=== PATIENT | female | born 1985 | race Caucasian/White ===

== ENCOUNTER → 2017-09-24 | Outpatient (CLI) | payer OTHER | LOC: LAB.O 09:50 | PROVIDERS: ATTEND Obstetrics & Gynecology | DX: Z01.419 Encounter for gynecological examination (general) (routine) without abnormal findings (principal) ==

== ENCOUNTER 2017-12-11 22:21 | Emergency (ER) | payer OTHER ==
--- NOTE | 2017-12-11 23:36 | ED.PDOC ---
History of Present Illness - General Chief Complaint: Back Pain or Injury Stated Complaint: low back pain, buldging disk L4-5 S1 Time Seen by Provider: 12/11/17 23:32 Source: patient Exam Limitations: no limitations - History of Present Illness Initial Comments: Ria Marie 32 y/o female stated that she had onset of sharp /stabbing low back pain tonight radiating to lower abdominal area stated been carrying babies but no recent back injuries.Had previous history of back pains in the past .Denies bowel or bladder dysfunction.Had history of bulging disc and had MRI / spine 11 years ago.No surgical procedure done. Timing/Duration: 1-3 hours Quality/Severity: sharpness Back Pain Location: lumbar spine Back Pain Radiation: other - see hpi Method of Injury/Prior Injury: other - no ijuries Improving Factors: rest Worsening Factors: movement Associated Symptoms: other - see hpi Allergies/Adverse Reactions: Allergies NO KNOWN ALLERGY Allergy (Unverified 07/02/13 10:11) Home Medications: Ambulatory Orders Vit W/ Ferrous Fumara [] 1 tab PO AM 07/05/13 Gabapentin [Neurontin] 300 mg PO BID #30 cap 12/12/17 Tramadol HCl 50 mg PO Q6HRS PRN #30 tab 12/12/17 predniSONE 20 mg PO DAILY #10 tab 12/12/17 Review of Systems - Review of Systems Constitutional: States: no symptoms reported EENTM: States: no symptoms reported Respiratory: States: no symptoms reported Gastrointestinal/Abdominal: States: no symptoms reported Genitourinary: States: no symptoms reported Musculoskeletal: States: see HPI Neurological: States: no symptoms reported All other Systems: Reviewed and Negative, No Change from Baseline Past Medical History (General) - Patient Medical History Hx Congestive Heart Failure: No Hx Diabetes: No Surgical History: other - d and c - Female History Patient is a Female of Child Bearing Age (10 -59 yrs old): Yes Hx Last Menstrual Period: 11/29/17 Patient : No Family Medical History - Family History Mother Family History: Unknown Physical Exam - Physical Exam General Appearance: Alert, Anxious, Comfortable, No apparent distress Eyes, Ears, Nose, Throat Exam: normal ENT inspection Neck Exam: non-tender, normal alignment, normal inspection Cardiovascular/Respiratory: regular rate, rhythm, no M/R/G, normal peripheral pulses Peripheral Pulses: radial,right: 2+, radial,left: 2+ Gastrointestinal/Abdominal: normal bowel sounds, non tender, soft, no organomegaly Back Exam: decreased range of motion - l/s area, vertebral tenderness - along l/ s junction Neurologic: alert, oriented x 3, other - DTR 2 + bilaterally knee jerk; straight leg raising test negative Skin Exam: normal color Progress - EKG/XRAY/CT XRAY: l- spine no fracture or subluxation Departure - Departure Clinical Impression: Low back pain potentially associated with radiculopathy Time of Disposition: :06 Disposition: Discharge to Home or Self Care Departure Forms: ED Discharge - Pt. Copy, Patient Portal Self Enrollment Instructions: DI for Low Back Pain, DI for Herniated Disc, Herniated Disc Referrals: Everton Maya MD [Primary Care Provider] - 1-2 Weeks Prescriptions: Tramadol HCl 50 mg PO Q6HRS PRN #30 tab PRN Reason: Pain Gabapentin [Neurontin] 300 mg PO BID #30 cap predniSONE 20 mg PO DAILY #10 tab Home Medications: Ambulatory Orders Vit W/ Ferrous Fumara [] 1 tab PO AM 07/05/13 Gabapentin [Neurontin] 300 mg PO BID #30 cap 12/12/17 Tramadol HCl 50 mg PO Q6HRS PRN #30 tab 12/12/17 predniSONE 20 mg PO DAILY #10 tab 12/12/17 Additional Instructions: Follow up with your primary Md Dr. Maya 12 Dec 2017
[2017-12-12] MEDS ORDERED: MORPHINE SULFATE INJ 10 MG/ML VIAL IM ONE (00:01)
[2017-12-12] MEDS ORDERED: DEXAMETHASONE INJ 10 MG/ML VIAL IM ONE (00:01)
[2017-12-12] MEDS ORDERED: ORPHENADRINE CITRATE 30 MG/ML AMP IM ONE (00:01)
--- NOTE | 2017-12-12 00:55 | RAD ---
EXAM: Three view(s) of the lumbar spine. INDICATION: Pain, lumbar spine. COMPARISON: None. FINDINGS: Alignment: Intact. Fracture: No acute compression fracture or subluxation. IMPRESSION: 1. No acute compression fracture. Electronically signed by: Christoph Campbell MD 12/12/2017 12:54 AM CDT Workstation: [id number]
[2017-12-12] MEDS ORDERED: HYDROCOD/APAP 10/325 (ER DISP) # 3 tablets PO ONE (01:04)
[2017-12-12] MEDS ORDERED: GABAPENTIN 300 MG CAP PO ONE (01:04)
[2017-12-12 01:37] VITALS: TEMP 98; O2SAT 97
[2017-12-12 01:45] VITALS: BP 128/72
== END 2017-12-12 01:47 | disposition home or self-care (01) ==
LOC: ER 22:21
DX: M54.16 Radiculopathy, lumbar region (principal)
CPT/HCPCS: 72100; 80307; 81001; 81025; J1100; J2270; J2360

== ENCOUNTER → 2020-01-09 | Outpatient (CLI) | payer OTHER | LOC: LAB.O 10:23 | PROVIDERS: ATTEND Internal Medicine Gastroenterology | DX: R10.10 Upper abdominal pain, unspecified (principal) ==

== ENCOUNTER 2020-01-18 17:30 | Emergency (ER) | payer OTHER ==
[2020-01-18] MEDS ORDERED: SODIUM CHLORIDE 0.9% (FLUSH) 10 ML SYG IV PRN (17:33)
--- NOTE | 2020-01-18 17:34 | ED.PDOC ---
History of Present Illness - General Time Seen by Provider: 01/18/20 17:32 Source: patient - History of Present Illness Initial Comments: 34 yo female with PMH of constipation, endometriosis who presents with cc of abdominal pain. Reports onset of pain yesterday, at that time located throughout the lower abdominal region, now having pain in the epigastric region since this morning, gradually worsening, now reports as 7/10, constant pain, "feels like a cecy pushing through from my stomach to my back", no known exacerbating factors. Reports fever of 101.7F yesterday. Reports ongoing worsening cough for the past 2 weeks productive now for mucous. Reports also some intermittent mild right-sided chest discomfort with coughing. Also reports some urinary frequency and constipation. States that her last BM was today- small hardened droplets of stool but normal in color without any blood or melena. Reports poor appetite but denies any nausea or vomiting. Last menstrual period was about 4 weeks ago, due to start her period any day now. Reports history of endometriosis and underwent laparoscopic resection of some intra-abdominal tissue about [address] Maya and reports improved symptoms since then. No other abdominal surgeries reported. Denies any dyspnea, sore throat, vaginal discharge. Allergies/Adverse Reactions: Allergies NO KNOWN ALLERGY Allergy (Verified 01/18/20 18:03) Home Medications: Ambulatory Orders Vit W/ Ferrous Fumara [] 1 tab PO AM 07/05/13 Gabapentin [Neurontin] 300 mg PO BID #30 cap 12/12/17 Tramadol HCl 50 mg PO Q6HRS PRN #30 tab 12/12/17 predniSONE 20 mg PO DAILY #10 tab 12/12/17 Amoxicillin 1,000 mg PO TID 5 Days #30 cap 01/18/20 Review of Systems - Review of Systems Review of Systems: 01/18/20 18:25 as per HPI All other Systems: Reviewed and Negative Past Medical History (General) - Patient Medical History Hx Seizures: No Hx Stroke: No Hx Dementia: No Hx Asthma: No Hx of COPD: No Hx Cardiac Disorders: No Hx Congestive Heart Failure: No Hx Pacemaker: No Hx Hypertension: No Hx Thyroid Disease: No Hx Diabetes: No Hx Gastroesophageal Reflux: No Hx Renal Disease: No Hx Cancer: No Hx of HIV: No Hx Hepatitis C: No Hx MRSA: No - Vaccination History Hx Tetanus, Diphtheria Vaccination: No Hx Influenza Vaccination: No - Female History Hx Last Menstrual Period: 11/29/17 Patient : No Family Medical History - Family History Mother Family History: Unknown Physical Exam - Physical Exam General Appearance: Alert, Comfortable, No apparent distress Eye Exam: bilateral normal Ears, Nose, Throat: hearing grossly normal, normal ENT inspection, normal pharynx Neck: non-tender, full range of motion, supple, normal inspection Respiratory: chest non-tender, lungs clear, normal breath sounds, no respiratory distress, no accessory muscle use Cardiovascular/Chest: normal peripheral pulses, regular rate, rhythm, no edema, no gallop, no JVD, no murmur Peripheral Pulses: radial,right: 2+, radial,left: 2+ Gastrointestinal/Abdominal: soft, no organomegaly, no pulsatile mass, tenderness - Moderate without guarding to epigastric region and LLQ Back Exam: normal inspection, no CVA tenderness, no vertebral tenderness Extremity: normal range of motion, non-tender, normal inspection, no pedal edema, no calf tenderness 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 Her lab results revealed WBC 13,000 with slight left shift and no bandemia. Labs otherwise pretty unremarkable including CMP and amylase/lipase. hCG is negative. UA is pretty unremarkable. -CT A/P obtained which reveals no acute intra-abdominal processes. However, patient is incidentally noted to have focal consolidation in the right medial lower lung concerning for possible pneumonia. Will obtain 2 view x-ray of the chest. Will give Toradol 30 mg IV for pain. Anticipate discharge to home on antibiotics with close outpatient follow-up. 01/18/20 19:38 -CXR reveals small right consolidating infiltrate in the Right medial lower lobe per my read. No other acute processes noted. -pt remains stable, pain improved with Toradol -As pt previously healthy and low-risk for Abx resistance, will treat with high- dose amoxicillin therapy - 1000 mg PO TID x5 days. -dc to home in good condition, ED return warnings discussed at length Azam Ratliff MD Billing # 01/18/20 17:33 Sodium Chloride 0.9% (Flush) [Saline Flush Syringe] 10 ml IV PRN PRN 01/18/20 17:45 EKG STAT 01/18/20 18:21 Hold Metformin x 48Hrs [id number] Laboratory Results - last 24 hr 01/18/20 01/18/20 01/18/20 17:33 17:46 17:46 WBC 13.6 H RBC 4.17 L Hgb 12.1 Hct 36.0 MCV 86.3 MCH 29.1 MCHC 33.7 RDW 13.6 Plt Count 292 MPV 7.9 Absolute Neuts (auto) 10.60 H Absolute Lymphs (auto) 2.30 Absolute Monos (auto) 0.60 Absolute Eos (auto) 0.00 Absolute Basos (auto) 0.10 Neutrophils % 78.0 Lymphocytes % 16.9 L Monocytes % 4.4 Eosinophils % 0.2 L Basophils % 0.5 Sodium 137 Potassium 3.5 L Chloride 105 Carbon Dioxide 23 Anion Gap 12.5 BUN 9 Creatinine 0.73 BUN/Creatinine Ratio 12.3 Random Glucose 78 Serum Osmolality 271.4 L Calcium 9.2 Total Bilirubin 0.8 Direct Bilirubin 0.2 Indirect Bilirubin 0.6 AST 14 ALT 16 Alkaline Phosphatase 58 Serum Total Protein 7.8 Albumin 3.6 Amylase 47 Lipase 22 Urine Color Urine Appearance Urine pH Ur Specific [place] Urine Protein Urine Glucose (UA) Urine Ketones Urine Blood Urine Nitrite Urine Bilirubin Urine Urobilinogen Ur Leukocyte Esterase Urine RBC Urine WBC Ur Epithelial Cells Urine Bacteria Urine Mucus Urine HCG, Qual Negative 01/18/20 18:35 WBC RBC Hgb Hct MCV MCH MCHC RDW Plt Count MPV Absolute Neuts (auto) Absolute Lymphs (auto) Absolute Monos (auto) Absolute Eos (auto) Absolute Basos (auto) Neutrophils % Lymphocytes % Monocytes % Eosinophils % Basophils % Sodium Potassium Chloride Carbon Dioxide Anion Gap BUN Creatinine BUN/Creatinine Ratio Random Glucose Serum Osmolality Calcium Total Bilirubin Direct Bilirubin Indirect Bilirubin AST ALT Alkaline Phosphatase Serum Total Protein Albumin Amylase Lipase Urine Color Dk yellow H Urine Appearance Clear Urine pH 6.0 Ur Specific [place] >= 1.030 Urine Protein 30 Urine Glucose (UA) Negative Urine Ketones 80 H Urine Blood Trace-intact H Urine Nitrite Negative Urine Bilirubin Moderate Urine Urobilinogen 1.0 Ur Leukocyte Esterase Negative Urine RBC 0-1 Urine WBC 0-1 Ur Epithelial Cells 1-3 Urine Bacteria Rare Urine Mucus Moderate Urine HCG, Qual - EKG/XRAY/CT EKG: Sinus - NSR, HR 80, no ST elevations or Q waves noted, axis normal, intervals normal, no prior EKG for comparison. Departure - Departure Clinical Impression: Community acquired pneumonia Qualifiers: Laterality: right Lung location: lower lobe of lung Qualified Code(s): J18.9 - Pneumonia, unspecified organism Time of Disposition: 19:28 Disposition: Discharge to Home or Self Care Condition: Fair Instructions: Community-Acquired Pneumonia, Adult (DC) Diet: resume usual diet Activity: increase activity as tolerated Referrals: Everton Maya MD [Primary Care Provider] - 1-2 Weeks Prescriptions: Amoxicillin 1,000 mg PO TID 5 Days #30 cap Home Medications: Ambulatory Orders Vit W/ Ferrous Fumara [] 1 tab PO AM 07/05/13 Gabapentin [Neurontin] 300 mg PO BID #30 cap 12/12/17 Tramadol HCl 50 mg PO Q6HRS PRN #30 tab 12/12/17 predniSONE 20 mg PO DAILY #10 tab 12/12/17 Amoxicillin 1,000 mg PO TID 5 Days #30 cap 01/18/20 Additional Instructions: Take the antibiotics as directed and finish the full course even if well. Remain well-hydrated and advance your diet and activity level gradually as tolerated. Continue taking OTC medications for pain and fever such as Tylenol 650 mg every 6 hours as needed and ibuprofen 600 mg every 6 hours as needed. Return to the ED if you develop any concerning symptoms such as worsening chest pain or shortness of breath, worsening abdominal pain, intractable nausea and vomiting, blood in the vomit or stool, failure to improve after 24 to 48 hours of antibiotic therapy, etc. Follow-up with your primary care physician in the clinic is recommended in the next 3 to 5 days for repeat evaluation or sooner as needed.
[2020-01-18] MEDS ORDERED: ALUM & MAG HYDROX-SIMETHICONE 30 ML, LIDOCAINE VISCOUS 2% 15 ML PO ONE ×2 (18:00)
[2020-01-18] MEDS ORDERED: ONDANSETRON INJ 4 MG/2 ML VIAL IV ONE (18:00)
[2020-01-18] MEDS ORDERED: SODIUM CHLORIDE 0.9% 1000ML 1,000 ML IVS ONE (18:00)
[2020-01-18 18:02] VITALS: TEMP 99.2; O2SAT 98
--- NOTE | 2020-01-18 19:16 | CT ---
EXAM: CT Abdomen and Pelvis With Intravenous Contrast CLINICAL HISTORY: The patient is 34 years old and is Female; epigastric and lower abdominal pain TECHNIQUE: Axial computed tomography images of the abdomen and pelvis with intravenous contrast. Sagittal and coronal reformatted images were created and reviewed. This CT exam was performed using one or more of the following dose reduction techniques: automated exposure control, adjustment of the mA and/or kV according to patient size, and/or use of iterative reconstruction technique. COMPARISON: No relevant prior studies available. FINDINGS: Lung bases: Focal consolidation in the medial inferior right lower lobe. ABDOMEN: Liver: Unremarkable. No mass. Gallbladder and bile ducts: Unremarkable. No calcified stones. No ductal dilation. Pancreas: No findings to suggest acute pancreatitis. No mass visualized. No ductal dilation. Spleen: Unremarkable. No splenomegaly. Adrenals: Unremarkable. No mass. Kidneys and ureters: Punctate left nephrolithiasis. Kidneys are otherwise unremarkable. No hydronephrosis or ureter stone. Stomach and bowel: No bowel dilatation or obstruction. No bowel wall thickening. Stomach is unremarkable. PELVIS: Appendix: The visualized appendix is normal. No pericecal inflammation to suggest acute appendicitis. Bladder: Unremarkable. No mass. Reproductive: Unremarkable as visualized. ABDOMEN and PELVIS: Intraperitoneal space: Unremarkable. No free air. No significant fluid collection. Bones/joints: Degenerative changes right SI joint No acute fracture. No dislocation. Soft tissues: Unremarkable. Vasculature: Unremarkable. No abdominal aortic aneurysm. Lymph nodes: No pathologically enlarged lymph nodes. IMPRESSION: 1. Focal consolidation in the medial inferior right lower lobe.. Correlate clinically for pneumonia. 2. Punctate left nephrolithiasis. 3. Normal appendix. Electronically signed by: Julissa Landis MD 01/18/2020 7:14 PM CDT
[2020-01-18] MEDS ORDERED: KETOROLAC TROMETHAMINE INJ 30 MG/ML VIAL IV ONE (19:22)
[2020-01-18] MEDS ORDERED: AMOXICILLIN 500 MG CAP PO ONE (19:38)
--- NOTE | 2020-01-18 19:40 | RAD ---
EXAM DESCRIPTION: Chest,2 Views CLINICAL HISTORY: 34 years Female, fevers, leukocytosis, epigastric pain COMPARISON: CT abdomen pelvis performed earlier today. TECHNIQUE: PA and lateral chest radiographs. FINDINGS: Subtle nonspecific medial right lower lobe opacity, which is depicted in better detail on concurrently performed CT. No pneumothorax or pleural effusion. Normal cardiomediastinal contour. Normal osseous structures. IMPRESSION: 1. Medial right lower lobe opacity, nonspecific, but presumably infection. If indicated, consider additional characterization with CT chest. Electronically signed by: Steve Avalos MD 01/18/2020 7:38 PM CDT
[2020-01-18] MEDS ORDERED: AMOXICILLIN 500 MG CAP ONE (19:51)
[2020-01-18 19:56] VITALS: BP 132/83
== END 2020-01-18 19:56 | disposition home or self-care (01) ==
LOC: ER 17:30
DX: J18.9 Pneumonia, unspecified organism (principal); R07.89 Other chest pain; R50.9 Fever, unspecified
CPT/HCPCS: 71046; 74177; 80048; 80076; 81001; 81025; 82150; 83690; 85025; 93005; A4216; J1885; J2405; J7030

== ENCOUNTER → 2020-01-24 | Outpatient (CLI) | payer OTHER ==
--- NOTE | 2020-01-24 15:48 | US ---
EXAM DESCRIPTION: Abdomen,Complete: Ultrasound. CLINICAL HISTORY: 34 years FemaleUNSP ABD PN COMPARISON: None Available. TECHNIQUE: Transabdominal scanning: grayscale and Doppler modes. FINDINGS: Gallbladder: Slightly contracted. 5.9 mm echogenic object on the hepatic wall non gravity dependent with no shadowing. Most likely a polyp. Wall thickness 2.5 mm normal caliber with no fluid. Nontender with transducer pressure. Common bile duct: 3.7 mm normal caliber. Liver: Heterogeneous increased echogenicity. Long axis right lobe 13.8 cm. Normal caliber intrahepatic ducts. Neurologic flow portal vein and normal caliber at the inna hepatis. Smooth capsule with no ascites. Pancreas: Normal size and echogenicity; duct not seen.. Abdominal aorta: Normal caliber from the proximal segment to the distal bifurcation. IVC: visualized; normal caliber. Spleen normal echogenicity; long axis measurement is 11.1 cm. cm. Right kidney: 9.8 cm long axis with normal cortical thickness and echogenicity. Volume is 79.1 mL. No echogenic stones or hydronephrosis. Left kidney: 9.7 cm long axis. Volume is 148.7 mL. Normal cortical thickness and echogenicity. No echogenic stones and no hydronephrosis. IMPRESSION: 1. Gallbladder slightly contracted with almost 6 mm polyp. No stones or sludge. No wall thickening or fluid. Nontender. Normal caliber common bile duct. 2. Steatosis of the liver but no enlargement. Physiologic vascular flow. Otherwise negative. Pancreas is unremarkable. Normal caliber of the abdominal aorta and IVC. 3. Bilateral kidneys are negative. Left kidney is larger. Electronically signed by: Gumaro Patel MD 01/24/2020 3:47 PM CDT
== END ==
LOC: US 08:04
PROVIDERS: ATTEND Internal Medicine Gastroenterology
DX: K82.4 Cholesterolosis of gallbladder (principal); K76.0 Fatty (change of) liver, not elsewhere classified

== ENCOUNTER → 2020-02-01 | Outpatient (CLI) | payer OTHER ==
--- NOTE | 2020-02-01 10:33 | RAD ---
EXAMINATION: Chest x-ray 2 views. INDICATION: Pneumonia. COMPARISON: January 18, 2020 TECHNIQUE: Frontal and lateral radiographs of the chest. FINDINGS: The cardiac silhouette is normal in size. No focal consolidative process. There is no pneumothorax. Bones are grossly intact. IMPRESSION: No acute pulmonary findings. No change in aeration from prior study. Electronically signed by: Terrance Coulter MD 02/01/2020 10:32 AM CDT
== END ==
LOC: RAD 10:06
PROVIDERS: ATTEND Nurse Practitioner Family
DX: J18.9 Pneumonia, unspecified organism (principal)

== ENCOUNTER 2020-02-06 05:31 | Day surgery (SDC) | payer OTHER ==
[2020-02-06] MEDS ORDERED: LACTATED RINGERS 1,000 ML ONE (06:36)
[2020-02-06] MEDS ORDERED: LIDOCAINE 1% 10 ML VIAL INJ ONE (07:00)
[2020-02-06] MEDS ORDERED: PROPOFOL 200 MG/20 ML VIAL IV ONE (07:00)
--- NOTE | 2020-02-06 09:37 | OP ---
DATE OF PROCEDURE: 02/06/20 PREOPERATIVE DIAGNOSIS: 1. Upper abdominal pain. POSTOPERATIVE DIAGNOSIS: 1. Gastric erythema. 2. Otherwise unremarkable upper endoscopy. PROCEDURE: 1. Esophagogastroduodenoscopy. SURGEON: Iggy Sung MD ANESTHESIA: Monitored anesthesia care. ESTIMATED BLOOD LOSS: Less than 5 mL. COMPLICATIONS: None. PROCEDURE: The patient was placed in the left lateral decubitus position. A time-out was performed. After deep sedation was achieved, the Olympus adult upper endoscope was inserted through the oropharynx and into the proximal esophagus and advanced to the second portion of the duodenum under direct visualization. The endoscope was then progressively withdrawn and the duodenum, stomach and esophageal lumen were evaluated. Retroflexion was performed in the stomach. The endoscope was then withdrawn and the procedure terminated. The patient tolerated the procedure well with no immediate complications. FINDINGS: 1. Esophagus: The esophagus was unremarkable. 2. Stomach: Mild patchy erythema was seen in the gastric antrum and body. Random gastric biopsies were taken to rule out H. pylori. 3. Duodenum: The first and second portions of the duodenum were unremarkable. Random duodenal biopsies were taken to rule out celiac disease. IMPRESSION: 1. Mild gastric erythema, biopsied. 2. Otherwise unremarkable upper endoscopy. 3. Duodenal biopsies taken to rule out celiac disease. RECOMMENDATIONS: 1. Okay to discharge home once the patient meets discharge criteria. 2. Resume prior diet. 3. Resume home medications. 4. Await pathology results. 5. Followup in GI clinic with Dr. Sung in 4 week via Telemedicine. #[id number] MTDD
[2020-02-06 10:18] VITALS: BP 127/58; TEMP 97.1; O2SAT 99
== END 2020-02-06 10:15 | disposition home or self-care (01) ==
LOC: AMB 05:31
PROVIDERS: ATTEND Internal Medicine Gastroenterology
DX: R10.9 Unspecified abdominal pain (principal); R11.0 Nausea; R14.0 Abdominal distension (gaseous); L53.9 Erythematous condition, unspecified; E66.9 Obesity, unspecified; F32.9 Major depressive disorder, single episode, unspecified; F41.9 Anxiety disorder, unspecified; K58.1 Irritable bowel syndrome with constipation
CPT/HCPCS: 00731; 43239; J7120

== ENCOUNTER → 2020-03-06 | Outpatient (CLI) | payer OTHER | LOC: LAB.O 17:43 | PROVIDERS: ATTEND Internal Medicine Gastroenterology | DX: K90.0 Celiac disease (principal) ==